=== PATIENT | female | born 1990 | race Caucasian/White ===

== ENCOUNTER 2018-11-22 13:12 | Inpatient (IN) ==
[2018-11-22] MEDS ORDERED: OXYTOCIN 30 UNITS/500 ML BAG IV PRN ×2 (13:53→20:33)
[2018-11-22] MEDS ORDERED: LACTATED RINGER'S 1,000 ML IV PRN (13:53)
--- NOTE | 2018-11-22 14:08 | History & Physical Report ---
Date of Service November 22, 2018 Assessment & Plan (1) 18 weeks gestation of : Intrauterine demise, likely due to previable premature rupture of membranes and prolapse of umbilical cord. I discussed options for management with patient. Since she is far from home, I offered her to be able to travel home for further management by her home OBGYN - she declined and would like to stay here. Will obtain IV access, CBC, T&S. Patient had care at [facility] Women's outpatient office in [place] - will attempt to obtain records for lab results - if unavailable, will obtain these here. Will plan for cytotec PO 400mcg PO for induction of labor, Q 4h max 5 doses. Patient is agreeable to induction of labor. (2) demise, less than 22 weeks: History of Present Illness Chief Complaint: cord prolapse Primary Care Provider: NO PCP 28yo @ 18 08/13 (with EDC 04/23/19 by 1st tri ultrasound) presents to L&D through the emergency department with worsening umbilical cord prolapse. She was originally diagnosed with anhydramnios on ultrasound 11/06/18, this was confirmed the following week at [facility]. She then sought a second opinion at [facility], and was told last week that there was heart rate of 170 and about 5cm of umbilical cord prolapse in the vagina. Speculum exam last week at [place] revealed cervical dilation 0.5cm. Per records from [place], anatomy appears normal, and the suspicion is that patient had spontaneous rupture of membranes at about 14w. She has had yellowish-green thick vaginal discharge. No fever/chills. No other symptoms. Eating/drinking well. No problems with bowels or urination. Some RLQ pain - crampy. No regular contractions. No vaginal bleeding. They had been offered by [facility] options for management and elected for expectant management. Prior was last fall, ended as 6w miscarriage. She passed this on her own and did not require medication or surgical management. She is from [place], [place] near [facility]. 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 Review of Systems All systems reviewed & are unremarkable except as noted in HPI & below Physical Exam Physical Exam: Limited bedside ultrasound: breech, no cardiac activity, no amniotic fluid. No movement. Constitutional: WD/WN, vitals as above well developed; no acute distress Respiratory: normal respiratory effort; no respiratory distress Cardiovascular: RRR, no murmur, no edema Rate/Rhythm: regular rate Gastrointestinal (Abdomen): Inspection/Auscultation: abdomen normal to inspection Percussion/Palpation: + abdomen tender (RLQ tenderness) and abd omen soft Musculoskeletal: Extremities: extremities normal to inspection Genitourinary: Cervix: 1cm/thick/nonpalpable presenting part. Thick yellow/green discharge. approx 10cm of umbilical cord prolapsed through cervix into vagina. Results & Data Vital Signs (Past 12 Hours) Vital Signs Temp Pulse Resp BP 11/22/18 13:15 37 C 68 18 119/63
[2018-11-22 14:59] LABS: Hematocrit (blood only) 37.3 % (37-47); Hemoglobin 13.1 g/dL (12.0-16.0); Mean Corpuscular Hgb Conc 35.1 g/dL (32-36); Mean Corpuscular Volume 92.8 fL (80-100); Platelet Count 185 K/uL (130-400); RDW Coefficient of Variation 12.5 % (11.5-14.5); RDW Standard Deviation 42.6 fL (36.4-46.3); Red Blood Count 4.02 M/uL (4.2-5.4); White Blood Count 8.81 K/uL (4.8-10.8)
[2018-11-22 15:37] LABS: Hepatitis B Surface Antibody Immune
[2018-11-22] MEDS: miSOPROStol 200 MCG TAB PO SCH ×2 (15:43→20:09)
[2018-11-22] MEDS ORDERED: ONDANSETRON INJ 2 MG/ML 2 ML VIAL IV PRN (17:05)
[2018-11-22] MEDS ORDERED: OXYCODONE/ACETAMINOPHEN 5mg/325mg TAB PO PRN ×3 (17:05→20:33)
[2018-11-22] MEDS ORDERED: IBUPROFEN 600 MG TAB PO PRN ×2 (17:05→20:33)
[2018-11-22] MEDS ORDERED: MoRPHine SULFATE 10 MG/ML CARP/VIAL IV STA (18:15)
[2018-11-22] MEDS ORDERED: PROMETHAZINE HCL 25 MG in SODIUM CHLORIDE 0.9% 50 ML IV ONE (18:30)
--- NOTE | 2018-11-22 20:24 | Procedure Note ---
Vaginal Delivery Summary Date of Service November 22, 2018 Vaginal Delivery Summary Vaginal Delivery Summary: Pre-delivery diagnoses: 28yo @ 18 2/7 with IUFD, AROM at 14w with prolapse of cord on presentation Post-delivery diagnoses: same Procedure: spontaneous vaginal delivery of demise Surgeon: Danika Sifuentes DO Complications: none Findings: Previable demise. Apgars: none . Weight pending, please see nursery records Estimated blood loss: 300ml Description of delivery: I was called to patient's room because she felt pressure and had vaginal bleeding. The fetus was beginning to protrude through the vagina. She spontaneously vaginally delivered a nonviable from the breech presentation. The fetus was delivered and the cord was clamped and cut. The placenta was then delivered spontaneously intact. The uterus and vagina were swept of clots and debris and no palpable placental tissue was felt. IV pitocin was given and an additional dose of PO cytotec. The uterus became firm. The cervix, vagina, and perineum were inspected and no lacerations were noted. Excellent hemostasis was observed. The mother is recovering in stable and good condition in the room. On gross inspection, no obvious anomalies. Appears to be male. Danika Sifuentes DO FACG
[2018-11-22] MEDS ORDERED: BISACODYL 10 MG SUPP PR PRN (20:33)
[2018-11-22] MEDS ORDERED: SUPERCREAM 0.870% 15 GM JAR EXT PRN (20:33)
[2018-11-22] MEDS ORDERED: DIPHTHERIA/TETANUS/PERTUSSIS 0.5 ML SYR/VIAL IM ONE (20:33)
[2018-11-22] MEDS ORDERED: ACETAMINOPHEN 325 MG TAB PO PRN (20:33)
[2018-11-22] MEDS ORDERED: HYDROCORTISONE ACETATE 25 MG SUPP PR PRN (20:33)
[2018-11-22] MEDS ORDERED: BENZOCAINE 20% AER SPR 82.5 GM CAN EXT PRN (20:33)
[2018-11-22] MEDS ORDERED: DOCUSATE SODIUM 100 MG CAP PO SCH (21:00)
[2018-11-23 06:22] LABS: Hematocrit (blood only) 30.8 % (37-47); Hemoglobin 10.8 g/dL (12.0-16.0)
--- NOTE | 2018-11-23 07:50 | Obstetrical Progress Note ---
Date of Service <Bernardinoliberty Mata DO - Last Filed: 11/23/18 07:59> November 23, 2018 Assessment & Plan <Bernardino Mata DO - Last Filed: 11/23/18 07:59> (1) demise, less than 22 weeks: -cont regular diet. May resume normal activities. Pain control with motrin/tylenol. Pt to monitor discharge/lochia -plan for d/c today. Discharge instructions reviewed. -pt making arrangements with home Subjective <Bernardino Mata DO - Last Filed: 11/23/18 07:59> 28 y/o F found in bed this AM in NAD. Doing well s/p IUFD. Tolerating PO intake. No issues voiding. Appropriate pain, very mild. Pt ok with going home today. Instructions given on what to expect when going home, reasons to call the office, limitations, etc. Pt expressed understanding. Physical Exam <Bernardino Mata DO - Last Filed: 11/23/18 07:59> Did not perform a PE. Please defer to attending note. Results & Data <Bernardino Mata DO - Last Filed: 11/23/18 07:59> Vital Signs (Past 12 Hours) Vital Signs Temp Pulse Resp BP 11/23/18 07:41 52 L 100/55 L 11/23/18 03:50 36.9 C 54 L 18 95/55 L 11/23/18 03:26 54 L 95/55 L 11/22/18 23:00 37.1 C 59 L 16 93/50 L 11/22/18 22:59 59 L 93/50 L 11/22/18 22:19 60 102/57 L 11/22/18 22:04 62 106/52 L 11/22/18 22:01 18 11/22/18 21:49 60 97/50 L 11/22/18 21:34 63 106/54 L 11/22/18 21:31 36.8 C 20 11/22/18 21:19 64 120/57 L 11/22/18 21:04 67 99/50 L 11/22/18 21:01 18 11/22/18 20:49 66 101/58 L 11/22/18 20:46 20 11/22/18 20:34 59 L 101/52 L 11/22/18 20:31 16 11/22/18 20:17 68 108/54 L 11/22/18 20:16 16 Laboratory Results Laboratory Results - last 24 hr 11/22/18 11/22/18 11/22/18 14:28 14:28 14:28 WBC 8.81 RBC 4.02 L Hgb 13.1 Hct 37.3 MCV 92.8 MCH 32.6 MCHC 35.1 RDW Std Deviation 42.6 RDW Coeff of Dick 12.5 Plt Count 185 MPV 10.0 RPR Hep Bs Antibody Immune Hep Bs Antibody, Quant 117.52 HIV 1&2 Ab/P24 Ag 4thGn Neg Blood Type Antibody Screen 11/22/18 11/22/18 11/23/18 14:28 14:44 06:09 WBC RBC Hgb 10.8 L Hct 30.8 L MCV MCH MCHC RDW Std Deviation RDW Coeff of Dick Plt Count MPV RPR Pending Hep Bs Antibody Hep Bs Antibody, Quant HIV 1&2 Ab/P24 Ag 4thGn Blood Type A Positive Antibody Screen NEGATIVE Medications Administered Current Inpatient Medications Acetaminophen (Tylenol) 650 mg PO Q6H PRN PRN Reason: Pain/CARBAJAL/Fever Stop: 12/22/18 20:32 Benzocaine (Dermoplast Pain Relieving [place]) 1 appln EXT PRN PRN PRN Reason: Perineal Discomfort Stop: 12/22/18 20:32 Bisacodyl (Dulcolax) 5 mg PO 2000 [facility] Stop: 11/23/18 20:01 Bisacodyl (Dulcolax) 10 mg TN DAILY PRN PRN Reason: No BM on 2nd post- day Stop: 12/22/18 20:32 Cocaine HCl (Supercream 0.870%) 1 gm EXT BID PRN PRN Reason: Hemorrhoidal Inflammation Stop: 12/06/18 20:32 Docusate Sodium (Colace) 100 mg PO BID [facility] Stop: 12/22/18 20:59 Hydrocortisone (Anusol Hc) 25 mg TN BID PRN PRN Reason: Hemorrhoidal Inflammation Stop: 12/22/18 20:32 Oxytocin (Pitocin) 30 units in 500 mls @ 333.333 mls/hr IV .Q1H30M PRN; Protocol PRN Reason: Bleeding Control Stop: 12/22/18 20:32 Ibuprofen (Motrin) 600 mg PO Q4H PRN PRN Reason: Pain/CARBAJAL/Cramping/Fever Stop: 12/22/18 20:32 Oxycodone/Acetaminophen (Percocet 5mg/325mg) 1 tab PO Q4H PRN PRN Reason: Pain not relieved by... Stop: 12/06/18 20:32 <Danika Sifuentes DO - Last Filed: 11/23/18 08:05> Co-Signing Physician Notes Resident Physician Supervision Note: I was present with Dr. Mata during the history and exam. I discussed the case with the resident and agree with the findings and plan as documented in the note. Any exceptions or clarifications are listed here: PPD#1 after of IUFD. She is doing ok at this time. Physically, feeling well. No abdominal tenderness or LE edema. Appropriate lochia. Emotionally, grieving appropriately. Would like to go home today. Will plan for followup with her home OUTCOME ANALYST for followup care. Documented By: Danika Sifuentes DO Resident Activity Tracking <Bernardino Mata DO - Last Filed: 11/23/18 07:59> Resident Involvement: Resident Care Provided Care Provided: OB Delivery
[2018-11-23] MEDS ORDERED: BISACODYL 5 MG TABEC PO SCH (20:00)
--- NOTE | 2018-11-26 12:28 | Discharge Summary ---
Date of Service November 26, 2018 Admission HPI Per Admitting Provider 28yo @ 18 08/13 (with EDC 04/23/19 by 1st tri ultrasound) presents to L&D through the emergency department with worsening umbilical cord prolapse. She was originally diagnosed with anhydramnios on ultrasound 11/06/18, this was confirmed the following week at [facility]. She then sought a second opinion at [facility], and was told last week that there was heart rate of 170 and about 5cm of umbilical cord prolapse in the vagina. Speculum exam last week at [place] revealed cervical dilation 0.5cm. Per records from [place], anatomy appears normal, and the suspicion is that patient had spontaneous rupture of membranes at about 14w. She has had yellowish-green thick vaginal discharge. No fever/chills. No other symptoms. Eating/drinking well. No problems with bowels or urination. Some RLQ pain - crampy. No regular contractions. No vaginal bleeding. They had been offered by [facility] options for management and elected for expectant management. Prior was last fall, ended as 6w miscarriage. She passed this on her own and did not require medication or surgical management. She is from [place], [place] near [facility]. 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 Hospital Course (1) 18 weeks gestation of : ON ADMISSION: Intrauterine demise, likely due to previable premature rupture of membranes and prolapse of umbilical cord. I discussed options for management with patient. Since she is far from home, I offered her to be able to travel home for further management by her home OBGYN - she declined and would like to stay here. Will obtain IV access, CBC, T&S. Patient had care at [facility] Women's outpatient office in [place] - will attempt to obtain records for lab results - if unavailable, will obtain these here. Will plan for cytotec PO 400mcg PO for induction of labor, Q 4h max 5 doses. Patient is agreeable to induction of labor. DESCRIPTION OF DELIVERY: I was called to patient's room because she felt pressure and had vaginal bleeding. The fetus was beginning to protrude through the vagina. She spontane ously vaginally delivered a nonviable from the breech presentation. The fetus was delivered and the cord was clamped and cut. The placenta was then delivered spontaneously intact. The uterus and vagina were swept of clots and debris and no palpable placental tissue was felt. IV pitocin was given and an additional dose of PO cytotec. The uterus became firm. The cervix, vagina, and perineum were inspected and no lacerations were noted. Excellent hemostasis was observed. The mother is recovering in stable and good condition in the room. On gross inspection, no obvious anomalies. Appears to be male. Patient was then discharged PPD#1 to home. Discharge Instructions Please see instructions provided to patient. Followup with home OBGYN in office in 2-4w.
== END 2018-11-23 12:40 | disposition home or self-care (01) | DRG 807 ==
LOC: OPB 13:12 → 4S1 13:19
DX: O32.1XX0 Maternal care for breech presentation, not applicable or unspecified; Z3A.18 18 weeks gestation of pregnancy; Z88.0 Allergy status to penicillin; O42.912 Preterm premature rupture of membranes, unspecified as to length of time between rupture and onset of labor, second trimester; O69.0XX0 Labor and delivery complicated by prolapse of cord, not applicable or unspecified; Z37.1 Single stillbirth; O02.1 Missed abortion

== ENCOUNTER 2021-05-07 16:11 | Inpatient (IN) ==
[~2021-05-07 16:11] MED LIST: BUPIVACAINE 0.25% 30 ML VIAL INJ ONE
[2021-05-07] MEDS ORDERED: OXYTOCIN 30 UNITS/500 ML BAG IV PRN (16:17)
[2021-05-07] MEDS ORDERED: fentaNYL citrate 100 MCG/2 ML VIAL ONE ×3 (16:25→23:20)
--- NOTE | 2021-05-07 16:25 | History & Physical Report ---
Date of Service May 07, 2021 Assessment & Plan (1) with 36 completed weeks gestation: (2) Cervical cerclage suture present in second trimester: Plan: Patient has likely early labor, cervical change and tight pulling cerclage. She needs cerclage removed. Notes reviewed from the cerclage placement. Was a difficult placement and so we wanted her to have removal at [facility]. However, needs removed now and no time to transfer because of concern for it tearing. She is agreeable to removal in or. Do not want to try in the room because of difficulty of positioning , retraction and discomfort. Discussed risks of bleeding, transfusion, infection, rom, tearing through and need for cervical repair. Consent reviewed and signed. History of Present Illness Chief Complaint: contractions with cerclage. Primary Care Provider: Dallin Vargas DO Patient is a with iup at 36 4/7 weeks who presented to labor and delivery from the office. hx significant for emergent cerclage placed at [facility]. She then transferred her care to [facility]. Was supposed to have it removed this week at [facility]. However presented to the office today. Was deon every 7-8 minutes and was checked by Dr. Arteaga and 4cm and paper thin. Presents for evaluation and cerclage removal. Patient notes +fm. OB Labs: Blood Type A Positive 10/12/20 Antibody Screen NEGATIVE 10/12/20 Hemoglobin 13.2 g/dL (12.0-16.0) 10/12/20 Hematocrit 37.9 % (37-47) 10/12/20 Mean Corpuscular Volume 93.6 fL (80-100) 10/12/20 Platelet Count 199 K/uL (130-400) 10/12/20 Rubella IgG Antibody Immune (Immune) 10/12/20 Rapid Plasma Reagin Nonreactive (Nonreactive) 10/12/20 Hepatitis B Surface Antigen Neg (Neg) 10/12/20 HIV (1&2) Ab and P24 Ag, 4th Gener Neg (Neg) 10/12/20 OB Optional Labs: Chlamydia trachomatis RNA NOT DETECTED (NOT DETECTED) 10/12/20 Neisseria gonorrhoeae RNA NOT DETECTED (NOT DETECTED) 10/12/20 Thyroid Stimulating Hormone (TSH) 2.310 uIu/ml (0.300-4.500) 07/24/20 Labs Reviewed: declines quad/msafp/cfdna --smp 12/15/20 Allergies Allergy/AdvReac Type Severity Reaction Status Date / Time Penicillins Allergy Mild Redness of Verified 05/07/21 15:24 Skin Home Medications Medication Instructions Recorded Confirmed Type prenat.vits,jhoan,[id number] 1 tab PO DAILY 01/02/21 05/07/21 History Patient History Medical History 18 weeks gestation of demise, less than 22 weeks History of chicken pox Missed ab Premature rupture of membranes Surgical History [place] teeth removed Family History Grandmother (Paternal) Colorectal cancer Father Heart disease Denies family history of Ovarian cancer Prostate cancer Breast cancer Uterine cancer Social History Smoking Status: Never smoker Second Hand Exposure: No; Hx Alcohol Use: No Hx Substance Use: No Preferred Language: Welsh Communication Ability: Effective Cell Biology Scientist Required: No Beliefs That Will Affect Care: None marital status: marital status details: Dallin Castleamanancy (36) [phone] Current Living Situation: Spouse Current Living Situation Comment: lives with , no pets current occupational status: employed current occupation: works remotely Feels Safe at Home: Yes Assistive Devices: None OB History g1--03/26--6 week sab g2--PPROM at 18 weeks with delivery and demise. Physical Exam Constitutional: WD/WN, vitals as above Gastrointestinal (Abdomen): soft, gravid, nt Genitourinary: deferred to OR Coding Level of Care Code None Diagnoses with 36 completed weeks gestation Z3A.36 Cervical cerclage suture present in second trimester O34.32
--- NOTE | 2021-05-07 16:28 | Anesthesiology Consultation ---
Date of Service May 07, 2021 Assessment & Plan Chart Review Chart Review: Acceptable Risk for Surgery, Patient NOT seen in Pre Admission Testing and Acceptable Risk for Labor Epidural Consults Requested none ASA ASA2 Proposed Anesthesia Anesthesia Type: Labor Epidural and CSE History Allergies Allergy/AdvReac Type Severity Reaction Status Date / Time Penicillins Allergy Mild Redness of Verified 05/07/21 15:24 Skin Medications Home Medications Medication Instructions Recorded Confirmed Last Taken prenat.vits,jhoan,[id number]-nflpl 1 tab PO DAILY 01/02/21 05/07/21 02/05/21 Past Medical History Medical History 18 weeks gestation of demise, less than 22 weeks History of chicken pox Missed ab Premature rupture of membranes Exercise / Class Metabolic Activity II 4-5 Yardwork/Stairs/Walk up hill Past Family History Family History Grandmother (Paternal) Colorectal cancer Father Heart disease Denies family history of Ovarian cancer Prostate cancer Breast cancer Uterine cancer Past Surgical History Surgical History [place] teeth removed Past Anesthesia History No Hx of Anesthesia Complications and No Family Hx of Anesthesia Complications History of PONV No Hx of PONV and No Hx of Motion Sickness Social History Smoking Status: Never smoker Hx Alcohol Use: No Hx Substance Use: No
[2021-05-07] MEDS: LACTATED RINGER'S 1,000 ML IV PRN ×2 (16:39→23:17)
[2021-05-07] MEDS ORDERED: ceFAZolin 2000MG 2,000 MG/15 ML SYR IV STA (16:40)
[2021-05-07 16:49] LABS: Hematocrit (blood only) 40.6 % (37-47); Hemoglobin 14.1 g/dL (12.0-16.0); Mean Corpuscular Hemoglobin 32.3 pg (25-34); Mean Corpuscular Hgb Conc 34.7 g/dL (32-36); Mean Corpuscular Volume 93.1 fL (80-100); Mean Platelet Volume 11.1 fL (7.4-10.4); Platelet Count 241 K/uL (130-400); RDW Coefficient of Variation 12.5 % (11.5-14.5); RDW Standard Deviation 42.9 fL (36.4-46.3); Red Blood Count 4.36 M/uL (4.2-5.4); White Blood Count 9.59 K/uL (4.8-10.8)
[2021-05-07] MEDS ORDERED: CITRIC ACID/SODIUM CITRATE 15 ML UDC ONE (16:56)
[2021-05-07] MEDS ORDERED: CITRIC ACID/SODIUM CITRATE 15 ML UDC PO ONE (17:15)
--- NOTE | 2021-05-07 17:36 | Operative Report ---
PG Post Operative Report Pre & Post Diagnosis pre-op--cerclage in place labor post-op --same I identified the patient and participated in the time-out.: Yes Procedure removal of cerclage under spinal anesthetic Surgeon Nallely Yoder MD, FACOG Clinical Laboratory Aide none Estimated Blood Loss 10 Findings Consistent with Post-Op Diagnosis on exam, the knot is a at 12. There are visible membranes noted. there is some fluid in the vagina perhaps consistent with rupture, but membranes appear intact. At the end of the procedure, the cervix is 5-6cm dilated/80/-2 Fluids 600cc Specimens none Drains none Anesthesia Type Spinal Complications none Disposition Accompanied Patient To Recovery: Yes Disposition: L&D Indications with cerclage and likely early labor with cervical dilation at 36 4/7 we eks. Description of Procedure see dictated report. I attest to the content of the Intraoperative Record and any orders documented therein. Any exceptions are noted below.
[2021-05-07] MEDS ORDERED: ePHEDrine sulfate 50 MG/ML AMP IV PRN (17:38)
[2021-05-07] MEDS ORDERED: NALOXONE HCL 0.4 MG/1 ML VIAL/CARP IV PRN (17:38)
[2021-05-07] MEDS ORDERED: NALOXONE HCL 1 MG in SODIUM CHLORIDE 0.9% 1000ML 1,000 ML IV PRN (17:38)
[2021-05-07] MEDS ORDERED: NALBUPHINE HCL INJ 10 MG/ML AMP IV PRN (17:38)
[2021-05-07] MEDS ORDERED: fentaNYL 2MCG/ML ROPIVACAINE 1.25MG/ML 100 ML BAG EPI PRN (17:38)
[2021-05-07] MEDS ORDERED: diphenhydrAMINE 50 MG/ML VIAL IV PRN (17:38)
--- NOTE | 2021-05-07 20:01 | Labor Progress Brief Note ---
Date of Service May 07, 2021 Subjective Patient is now grossly ruptured. clear. Noting contractions. Declines intervention. Assessment & Plan (1) with 36 completed weeks gestation: Plan: srom, labor. Expectant management. fetus category one. anticipate . May start epidural whenever she desires. Admission and Anticipated Discharge Date Admission Date: May 07, 2021 Physical Exam Physical Exam: cx--6/100/-2, bag gone toco--q5-7min efm--150s with mod variability, accels to 160s, no decels Results & Data ([facility]) Vital Signs (Past 12 Hours) Vital Signs Temp Pulse Resp BP Pulse Ox 05/07/21 19:55 68 97 05/07/21 19:53 63 80 L 05/07/21 19:50 61 97 05/07/21 19:45 53 L 97 05/07/21 19:40 67 100 05/07/21 19:35 65 99 05/07/21 19:33 63 129/75 05/07/21 19:31 69 85 L 05/07/21 19:30 66 96 05/07/21 19:25 75 98 05/07/21 19:20 66 99 05/07/21 19:15 70 97 05/07/21 19:09 37.5 C 18 05/07/21 19:05 70 99 05/07/21 19:03 76 119/79 05/07/21 19:00 65 99 05/07/21 18:57 72 118/76 05/07/21 18:55 76 99 05/07/21 18:50 73 98 05/07/21 18:46 68 120/76 05/07/21 18:45 69 94 05/07/21 18:42 77 84 L 05/07/21 18:40 74 99 05/07/21 18:35 62 117/81 99 05/07/21 18:30 71 20 99 05/07/21 18:25 68 124/60 99 05/07/21 18:20 67 99 05/07/21 18:15 58 L 100 05/07/21 18:12 61 87 L 05/07/21 18:11 64 113/77 05/07/21 18:10 62 99 05/07/21 18:05 64 124/82 100 05/07/21 18:04 65 87 L 05/07/21 18:03 62 118/80 05/07/21 18:01 59 L 118/77 05/07/21 18:00 37.1 C 59 L 18 100 05/07/21 17:59 63 107/76 05/07/21 17:57 73 122/84 05/07/21 17:55 62 118/81 100 05/07/21 17:52 72 91 05/07/21 17:50 68 98 05/07/21 17:49 71 115/78 05/07/21 17:00 20 05/07/21 16:29 37.1 C 18 Coding Level of Care Code None Diagnoses with 36 completed weeks gestation Z3A.36
--- NOTE | 2021-05-07 20:45 | Anesthesiology Progress Note ---
Date of Service May 07, 2021 Anesthesia Post Procedure Vital Signs Vital Signs: Temp Pulse Resp BP Pulse Ox 05/07/21 20:00 37.2 C 55 L 18 133/63 05/07/21 19:55 68 97 05/07/21 19:53 63 80 L 05/07/21 19:50 61 97 05/07/21 19:45 53 L 97 05/07/21 19:40 67 100 05/07/21 19:35 65 99 05/07/21 19:33 63 129/75 05/07/21 19:31 69 85 L 05/07/21 19:30 66 96 05/07/21 19:25 75 98 05/07/21 19:20 66 99 05/07/21 19:15 70 97 05/07/21 19:09 37.5 C 18 05/07/21 19:05 70 99 05/07/21 19:03 76 119/79 05/07/21 19:00 65 99 05/07/21 18:57 72 118/76 05/07/21 18:55 76 99 05/07/21 18:50 73 98 05/07/21 18:46 68 120/76 05/07/21 18:45 69 94 05/07/21 18:42 77 84 L 05/07/21 18:40 74 99 05/07/21 18:35 62 117/81 99 05/07/21 18:30 71 20 99 05/07/21 18:25 68 124/60 99 05/07/21 18:20 67 99 05/07/21 18:15 58 L 100 05/07/21 18:12 61 87 L 05/07/21 18:11 64 113/77 05/07/21 18:10 62 99 05/07/21 18:05 64 124/82 100 05/07/21 18:04 65 87 L 05/07/21 18:03 62 118/80 05/07/21 18:01 59 L 118/77 05/07/21 18:00 37.1 C 59 L 18 100 05/07/21 17:59 63 107/76 05/07/21 17:57 73 122/84 05/07/21 17:55 62 118/81 100 05/07/21 17:52 72 91 05/07/21 17:50 68 98 05/07/21 17:49 71 115/78 05/07/21 17:00 20 05/07/21 16:29 37.1 C 18 Transfer of Care Handoff Completed per policy Notes Mental Status: alert / awake / arousable and participated in evaluation Patient Amnestic to Procedure: Yes Nausea / Vomiting: adequately controlled Pain: adequately controlled Airway Patency, RR, SpO2: stable & adequate BP & HR: stable & adequate Hydration State: stable & adequate Neuraxial Anesthesia: was administered and sensory block is resolving Anesthetic Complications: no major complications apparent
[2021-05-07] MEDS ORDERED: SODIUM CHLORIDE 0.9% INJ 10 ML VIAL ONE (23:05)
[2021-05-07] MEDS ORDERED: ePHEDrine sulfate 50 MG/ML AMP ONE (23:05)
[2021-05-07] MEDS ORDERED: BUPIVACAINE 0.25% 30 ML VIAL ONE (23:05)
[2021-05-07] MEDS ORDERED: fentaNYL 2MCG/ML ROPIVACAINE 1.25MG/ML 100 ML BAG EPI ONE (23:06)
--- NOTE | 2021-05-07 23:07 | Labor Progress Brief Note ---
Date of Service May 07, 2021 Subjective uncomfortable , considering epidural Assessment & Plan (1) with 36 completed weeks gestation: Plan: patient desires epidural to be dosed. fetus category one. anticipate . Admission and Anticipated Discharge Date Admission Date: May 07, 2021 Physical Exam Physical Exam: cx--7/100/-1 toco--q2-4min efm--140s with mod variability, small accels, no decels Results & Data ([facility]) Vital Signs (Past 12 Hours) Vital Signs Temp Pulse Resp BP Pulse Ox 05/07/21 22:30 65 137/78 05/07/21 21:31 36.7 C 05/07/21 20:00 37.2 C 55 L 18 133/63 05/07/21 19:55 68 97 05/07/21 19:53 63 80 L 05/07/21 19:50 61 97 05/07/21 19:45 53 L 97 05/07/21 19:40 67 100 05/07/21 19:35 65 99 05/07/21 19:33 63 129/75 05/07/21 19:31 69 85 L 05/07/21 19:30 66 96 05/07/21 19:25 75 98 05/07/21 19:20 66 99 05/07/21 19:15 70 97 05/07/21 19:09 37.5 C 18 05/07/21 19:05 70 99 05/07/21 19:03 76 119/79 05/07/21 19:00 65 99 05/07/21 18:57 72 118/76 05/07/21 18:55 76 99 05/07/21 18:50 73 98 05/07/21 18:46 68 120/76 05/07/21 18:45 69 94 05/07/21 18:42 77 84 L 05/07/21 18:40 74 99 05/07/21 18:35 62 117/81 99 05/07/21 18:30 71 20 99 05/07/21 18:25 68 124/60 99 05/07/21 18:20 67 99 05/07/21 18:15 58 L 100 05/07/21 18:12 61 87 L 05/07/21 18:11 64 113/77 05/07/21 18:10 62 99 05/07/21 18:05 64 124/82 100 05/07/21 18:04 65 87 L 05/07/21 18:03 62 118/80 05/07/21 18:01 59 L 118/77 05/07/21 18:00 37.1 C 59 L 18 100 05/07/21 17:59 63 107/76 05/07/21 17:57 73 122/84 05/07/21 17:55 62 118/81 100 05/07/21 17:52 72 91 05/07/21 17:50 68 98 05/07/21 17:49 71 115/78 05/07/21 17:00 20 05/07/21 16:29 37.1 C 18 Coding Level of Care Code None Diagnoses with 36 completed weeks gestation Z3A.36
[2021-05-07] MEDS ORDERED: ceFAZolin 1000MG 1,000 MG/7.5 ML SYR IV PRN (23:19)
[2021-05-07] MEDS ORDERED: LIDOCAINE 2% MPF LOCAL 5 ML VIAL INFIL ONE (23:20)
--- NOTE | 2021-05-07 23:31 | Communication Note ---
Date of Service: May 07, 2021 Pt had epidural placed earlier but was not dosed as per her request. Having increased pain and now requesting analgesia. Catheter dosed with 1.5% lido with epi 1:200,000 5cc + fentanyl 100mcg, followed by 2% lidocaine 5 cc in divided doses.
[2021-05-08] MEDS ORDERED: METHYLERGONOVINE MALEATE 0.2 MG/ML AMP IM ONE (02:08)
[2021-05-08] MEDS ORDERED: ACETAMINOPHEN 325 MG TAB PO PRN (02:08)
[2021-05-08] MEDS ORDERED: miSOPROStoL 200 MCG TAB PR ONE (02:08)
[2021-05-08] MEDS ORDERED: bisacodyL 10 MG SUPP PR PRN (02:08)
[2021-05-08] MEDS ORDERED: oxyCODONE/ACETAMINOPHEN 5mg/325mg TAB PO PRN (02:08)
[2021-05-08] MEDS ORDERED: OXYTOCIN 30 UNITS/500 ML BAG IV PRN (02:08)
[2021-05-08] MEDS ORDERED: SUPERCREAM 0.870% 15 GM JAR EXT PRN (02:08)
[2021-05-08] MEDS ORDERED: DIPHTHERIA/TETANUS/PERTUSSIS 0.5 ML SYR/VIAL IM ONE (02:08)
[2021-05-08] MEDS ORDERED: HYDROCORTISONE ACETATE 25 MG SUPP PR PRN (02:08)
[2021-05-08] MEDS ORDERED: BENZOCAINE 20% AER SPR 82.5 GM CAN EXT PRN (02:08)
--- NOTE | 2021-05-08 02:15 | Delivery Summary ---
Vaginal Delivery Summary Date of Service May 08, 2021 Vaginal Delivery Summary and 1st Degree LAC Pre-operative Diagnosis: at 36 4/[address] ismael Post-operative Diagnosis: same Procedure: cerclage removed in or epidural first degree and right labial laceration and repair EBL: 400cc Anesthesia: epidural for labor Procedure: the patient presented to labor and delivery in early labor and was found to be 4cm in the office. She had a cerclage in place and this was removed in the or under spinal anesthetic. She was then brought to labor and delivery and was 5-6cm. She proceeded to labor and under go srom. Her GBS status was unknown to was treated with ancef. She had her epidural dosed at 9cm. She then progressed to c/c/+1. The patient pushed for approximately one hour to deliver a viable female infant in evelia position. The nose and mouth were bulb suctioned on the perineum and tight nuchal cord was clamped and cut. The rest of the infant was then delivered without difficulty. The baby was vigorous. The nose and mouth were again bulb suctioned and the was placed in the maternal abdomen for drying and attention. Cord blood and segment obtained. Placenta delivered spontaneous, intact with a three vessel cord. Cervix/sulci/rectum/perineum were intact. A first degree perineal laceration and right labial laceration were repaired in the normal standard fashion. Hemostasis obtained with dilute pitocin and fundal massage. Apgars were 8/9. Mother and baby doing well at the end of the delivery[place] [facility] [place] Delivery Type Details: and 1st Degree LAC
--- NOTE | 2021-05-08 03:16 | Anesthesia Procedure Note ---
Date of Service May 08, 2021 Anesthesia Post Epidural Note Vital Signs Vital Signs: Temp Pulse Resp BP Pulse Ox 37.1 C 71 18 145/72 H 100 05/08/21 01:53 05/08/21 03:05 05/08/21 03:05 05/08/21 03:05 05/08/21 02:02 Pain Intensity Left Abdomen: Pain Intensity: 0 Notes Mental Status: alert / awake / arousable Nausea / Vomiting: adequately controlled Pain: adequately controlled Airway Patency, RR, SpO2: stable & adequate BP & HR: stable & adequate Hydration State: stable & adequate Neuraxial Anesthesia: was administered and sensory block is resolving Anesthetic Complications: no major complications apparent and Pt Satisfied with anesthetic care Epidural: Removed without complications and With tip intact
[2021-05-08] MEDS: IBUPROFEN 600 MG TAB PO PRN ×4 (05:55→20:49)
[2021-05-08] MEDS: PRENATAL VITAMIN 1 TAB PO SCH (08:29)
[2021-05-08] MEDS: DOCUSATE SODIUM 100 MG CAP PO SCH ×2 (08:29→20:49)
--- NOTE | 2021-05-08 08:44 | Operative Report (OR) ---
PREOPERATIVE DIAGNOSES: 1. Intrauterine at 36 and 4/7 weeks. 2. History of cerclage placement. 3. Contractions with cervical dilation and possible early labor. POSTOPERATIVE DIAGNOSES: 1. Intrauterine at 36 and 4/7 weeks. 2. History of cerclage placement. 3. Contractions with cervical dilation and possible early labor. PROCEDURE: Removal of cervical cerclage under spinal anesthetic. SURGEON: Nallely Yoder MD ANESTHESIA: Combined spinal epidural. ESTIMATED BLOOD LOSS: 10 mL. FLUIDS: 600 mL of IV fluid. URINE OUTPUT: None. INDICATIONS: Marianne is a 30-year-old 3, para 0-0-2-0, with a history of an 18-week PROM and lo ss. She ended up at the [facility] for a cervical cerclage. Plan was to remove the cerc crystal this week at [place], but she presented to the office where she was found to be deon. He r cervix was checked and she was at least 4 cm dilated with pulling on the cerclage. FINDINGS: On speculum exam, there is a slight bit of fluid within the vagina that appears clear, but the membranes are visible at the cervical os, which is obviously dilated at least 4 cm. COMPLICATIONS: None. DRAINS: None. DISPOSITION: To labor and delivery for recovery. DESCRIPTION OF PROCEDURE: The patient was taken to the operating room where she was identified verbyumiko stockton and by sadaf. She was seated on the operating table where a combined spinal epidural was plac ed by Dr. Man. The patient was placed in supine position in Yellofin stirrups and blue prep and d rape was placed over the patient. Timeout was held identifying correct patient, procedure, and posit ioning. She did receive 2 g of Ancef, but only for GBS prophylaxis as she is unknown. A speculum wa s placed through the vagina. There was a little bit of clear fluid noted, so questionable rupture of membranes has happened. The cervix was obviously dilated to at least 4 cm dilated. The knots of th e cerclage were located at 12 o'clock. Using an Allis to grasp the knots, gentle pressure was applie d and then the suture was cut. It appears that the entire suture was removed. On exam, she is now 5 -6 cm. Palpable membranes are still there. The cephalic is palpated. A bit of Bovie electrocautery was needed at the site where the suture knots were because there was some bleeding from some granulat ion tissue, but otherwise she tolerated the procedure well and was taken to labor and delivery for ev aluation and probable labor. Job ID: [id number]
--- NOTE | 2021-05-08 09:37 | Operative Report (OR) ---
DATE OF SURGERY: 05/07/2021 PREOPERATIVE DIAGNOSES: 1. Cerclage in place. 2. Early labor. POSTOPERATIVE DIAGNOSES: 1. Cerclage in place. 2. Early labor. PROCEDURE: Removal of cerclage under spinal anesthetic. SURGEON: Nallely Yoder MD. ANESTHESIA: Spinal. ESTIMATED BLOOD LOSS: 10 mL. FLUIDS: 600 mL. URINE OUTPUT: None. INDICATIONS: The patient is a 3, para 0-0-2-0, who had a cerclage placed earlier in the [facility] at the [facility]. The patient presented to the office today with some contraction s. She was found to be deon every 7-8 minutes. Her cervix was at least 4 cm dilated paper th in and the cerclage was being pulled on. FINDINGS: Cerclage intact, had not ripped through. Membranes visible, small amount of fluid within th e cavity. COMPLICATIONS: None. DRAINS: None. DISPOSITION: To labor and delivery for evaluation and monitoring. DESCRIPTION OF PROCEDURE: The patient was taken to the operating room where she was identified verbyumiko stockton and by sadaf. She was seated on the operating table where spinal epidural anesthetic was plac ed by Dr. Man. She was then placed in dorsal lithotomy position in [facility] cane stirrups. She was p repped with a blue drape. Timeout was held, identifying correct patient, procedure, and positioning. The speculum was placed into the vagina. The cerclage was found to be intact. The cervix was dila garrett to at least 4 cm. Membranes were visible. There was some clear fluid in the vagina, so I suspec t that she might be ruptured. The cerclage was grasped with an Allis. It was tugged on gently and t hen cut with scissors, and the cerclage was removed, a little bleeding from the granulation site was attended to with Bovie electrocautery until hemostasis was assured. On exam, I could not palpate any further suture and the cervix was 5-6 cm dilated. The procedure was terminated. Job ID: [id number]
[2021-05-09] MEDS: IBUPROFEN 600 MG TAB PO PRN ×5 (03:34→20:53)
--- NOTE | 2021-05-09 05:57 | Obstetrical Progress Note ---
Date of Service <Kesha Ortiz MD - Last Filed: 05/09/21 06:38> May 09, 2021 Assessment & Plan <Kesha Ortiz MD - Last Filed: 05/09/21 06:38> (1) Vaginal delivery: 30 yo , complicated by cervical cerclage placement, now PPD1 from at 36wk5d -Continue routine care -Vitals reviewed- HDS, afebrile -Blood type A+, GBS unknown, Rubella immune -Encourage ambulation -Pain control with ibuprofen, acetaminophen PRN -Encourage -F/u in 6 weeks with OB <Marilia Fleming MD - Last Filed: 05/09/21 07:07> (1) Vaginal delivery: Subjective <Kesha Ortiz MD - Last Filed: 05/09/21 06:38> Ambulation: ambulating normally Voiding: no voiding problems Passing Gas:: Yes Diet Tolerance:: regular diet Lochia:: Small Feeding Type:: breast feeding Current Pain Level(1-10): 2 Pt feels overall, no acute complaints or distress. Minor soreness relieved by pain medication. Currently trying to breastfeed but also supplementing with formula. Review of Systems Denies fevers/chills. Denies dyspnea, cough. Denies chest pain. Denies breast pain or discharge. Denies dysuria. Denies headache. Denies back pain. Physical Exam <Kesha Ortiz MD - Last Filed: 05/09/21 06:38> General: Alert, oriented, no acute distress Cardiac: Regular rate and rhythm, normal S1, S2. No murmurs appreciated. Respiratory: Clear to auscultation b/l with good air flow entry, symmetric chest rise and fall. No wheezes or crackles. No increased work of breathing or accessory muscle use Abdomen: Soft, nontender, nondistended. Fundus firm and palpable at 1 cm below umbilicus. No guarding or rebound. Skin: No rashes or lesions Extremities: No lower extremity edema, erythema or swelling. Negative Abraham's sign b/l. Results & Data ([facility]) <Kesha Ortiz MD - Last Filed: 05/09/21 06:38> Vital Signs (Past 12 Hours) Vital Signs Temp Pulse Pulse Resp BP BP Pulse Ox 05/09/21 03:27 36.9 C 55 L 18 104/67 98 05/09/21 00:30 36.6 C 57 L 16 91/53 L 97 05/08/21 19:30 36.7 C 64 20 105/67 97 <Marilia Fleming MD - Last Filed: 05/09/21 07:07> Co-Signing Physician Notes Resident Physician Supervision Note: I was present with Dr. Ortiz during the history and exam. I discussed the case with the resident and agree with the findings and plan as documented in the note. Any exceptions or clarifications are listed here: Continue routine pp care Documented By: Marilia Fleming MD Resident Activity Tracking <Kesha Ortiz MD - Last Filed: 05/09/21 06:38> Resident Involvement: Resident Care Provided Care Provided: OB Delivery
[2021-05-09 07:17] LABS: Hematocrit (blood only) 31.9 % (37-47); Hemoglobin 10.7 g/dL (12.0-16.0)
[2021-05-09] MEDS: DOCUSATE SODIUM 100 MG CAP PO SCH ×2 (08:04→20:54)
[2021-05-09] MEDS: PRENATAL VITAMIN 1 TAB PO SCH (08:05)
[2021-05-09] MEDS ORDERED: bisacodyL 5 MG TABEC PO SCH (20:00)
[2021-05-10] MEDS: IBUPROFEN 600 MG TAB PO PRN ×3 (01:35→12:45)
--- NOTE | 2021-05-10 06:50 | Obstetrical Progress Note ---
Date of Service <Kesha Ortiz MD - Last Filed: 05/10/21 08:06> May 10, 2021 Assessment & Plan <Kesha Ortiz MD - Last Filed: 05/10/21 08:06> (1) Vaginal delivery: 30 yo , complicated by cervical cerclage placement, now PPD1 from at 36wk5d -D/c home today, instructions provided -Vitals reviewed- HDS, afebrile -Blood type A+, GBS unknown, Rubella immune -Encourage ambulation -Pain control with ibuprofen, acetaminophen PRN -Encourage -F/u in 6 weeks with OB <Mariana Mata MD, FACOG - Last Filed: 05/10/21 08:23> (1) Vaginal delivery: Subjective <Kesha Ortiz MD - Last Filed: 05/10/21 08:06> Ambulation: ambulating normally Voiding: no voiding problems Passing Gas:: Yes Diet Tolerance:: regular diet Lochia:: Small Feeding Type:: breast feeding Current Pain Level(1-10): 0 Pt feels overall, no acute complaints or distress. Minor soreness relieved by pain medication. efforts are improving, also supplementing with formula. Review of Systems Denies fevers/chills. Denies dyspnea, cough. Denies chest pain. Denies breast pain or discharge. Denies dysuria. Denies headache. Denies back pain. Physical Exam <Kesha Ortiz MD - Last Filed: 05/10/21 08:06> General: Alert, oriented, no acute distress Cardiac: Regular rate and rhythm, normal S1, S2. No murmurs appreciated. Respiratory: Clear to auscultation b/l with good air flow entry, symmetric chest rise and fall. No wheezes or crackles. No increased work of breathing or accessory muscle use Abdomen: Soft, nontender, nondistended. Fundus firm and palpable at 2 cm below umbilicus. No guarding or rebound. Skin: No rashes or lesions Extremities: No lower extremity edema, erythema or swelling. Negative Abraham's sign b/l. Results & Data ([facility]) <Kesha Ortiz MD - Last Filed: 05/10/21 08:06> Vital Signs (Past 12 Hours) Vital Signs Temp Pulse Resp BP 05/10/21 03:35 36.7 C 59 L 16 99/57 L 05/09/21 19:45 36.4 C L 53 L 16 111/65 <Mariana Mata MD, FACOG - Last Filed: 05/10/21 08:23> Co-Signing Physician Notes Resident Physician Supervision Note: I was present with Dr. Ortiz during the history and exam. I discussed the case with the resident and agree with the findings and plan as documented in the note. Any exceptions or clarifications are listed here: pt doing well, ready to go home. breast, rh pos, ri. abd soft ff 2down nt, nt calves. instructions reviewed, f/u 6 wk pp check. Documented By: Mariana Mata MD, FACOG Resident Activity Tracking <Kesha Ortiz MD - Last Filed: 05/10/21 08:06> Resident Involvement: Resident Care Provided Care Provided: OB Delivery
[2021-05-10] MEDS: DOCUSATE SODIUM 100 MG CAP PO SCH (07:32)
[2021-05-10] MEDS: PRENATAL VITAMIN 1 TAB PO SCH (07:32)
--- NOTE | 2021-05-13 12:04 | Communication Note ---
Date of Service: May 13, 2021 Patient called the on-call MD to report a finding of bilateral swelling in LE's R=L, below the knee. She also has pain in one calf, but notes that she had a very strong cramp in that calf last night at this same spot, and the pain has drastically reduced since then, but is not gone. She is concerned for DVT. She has no erythema, no warmth, no chest pain or shortness of breath. She is PPD5 currently. Discussed that although her presentation is most statistically likely to be benign edema (since it's bilateral) with residual pain from a muscle cramp (based on her description of improvement), the risks of missing a DVT are potentially severe. We discussed that she is concerned about the risks of a long wait and/or COVID exposure and/or separation from the if she needs to come to the ER today. She asks if it is reasonable to wait for any further worsening (such as development of redness or chest pain) before deciding to come in. I reviewed that unfortunately, although the risk of DVT seems low as discussed above, there may not be any further warning signs to observe before an acute emergency (PE) develops, and there is reason for concern that waiting could come at the cost of an emergency. The correct medical management is to recommend she come to the ER to rule out DVT via lower extremity doppler US. She reluctantly agrees to come to ER for evaluation.
== END 2021-05-10 15:05 | disposition home or self-care (01) | DRG 768 ==
LOC: OPB 16:11 → 4S1 16:12 → 4S2 05-08 04:43
DX: O70.0 First degree perineal laceration during delivery; O60.14X0 Preterm labor third trimester with preterm delivery third trimester, not applicable or unspecified; Z88.0 Allergy status to penicillin; Z79.899 Other long term (current) drug therapy; O26.893 Other specified pregnancy related conditions, third trimester; Z3A.36 36 weeks gestation of pregnancy; O09.213 Supervision of pregnancy with history of pre-term labor, third trimester; O09.293 Supervision of pregnancy with other poor reproductive or obstetric history, third trimester; Z37.0 Single live birth